=== PATIENT | male | born 1995 | race African-American/Black ===

== ENCOUNTER 2018-01-08 21:56 | Emergency (ER) | payer OTHER ==
[2018-01-08 23:51] VITALS: BP 146/81; PULSE 52; RESP 16; TEMP 98.1; O2SAT 100
[2018-01-09] MEDS ORDERED: TETANUS/DIPHTHERIA TOXOID ADULT 0.5 ML VIAL IM ONE (01:15)
--- NOTE | 2018-01-09 01:17 | PD ---
HPI Chief Complaint: Laceration/Skin Injury Time Seen by Provider: 01:14 Travel History International Travel<30 days: No Contact w/Intl Traveler<30days: No Traveled to known affect area: No History of Present Illness HPI Right-hand dominant male presents for evaluation of fingertip tissue avulsion. Prior to arrival the patient was cutting [place] chard with a knife when he inadvertently cut his finger. Initially he had some bleeding which is currently resolved. He reports pain at the site of the wound, throbbing, worse with palpation. His last tetanus vaccination is unknown. No other complaints at this time. [facility] Past Medical History Medical History: Denies Significant Hx Asthma: Yes Past Surgical History Surgical History: No Previous Surgery Social History Alcohol Use: Yes (OCC) Tobacco Use: No Substance Use: No Allergies-Medications (Allergen,Severity, Reaction): Coded Allergies: epinephrine (Verified Allergy, Unknown, 01/08/18) naproxen (Verified Allergy, Unknown, 01/08/18) oxycodone (Verified Allergy, Unknown, 01/08/18) Reported Meds & Prescriptions Reported Meds & Active Scripts Active No Active Prescriptions or Reported Medications Review of Systems Musculoskeletal: Positive: Pain Skin: Positive Other (Positive for pain, tissue avulsion) Physical Exam Narrative GENERAL: Well-developed well-nourished male in no acute distress SKIN: Warm and dry. There is a 0.5 cm in length 1 mm in depth superficial tissue avulsion of the distal left thumb. There is no bone visibility. There is no bleeding at this time. CARDIOVASCULAR: Regular rate and rhythm. No murmur appreciated. RESPIRATORY: No accessory muscle use. Clear to auscultation. Breath sounds equal bilaterally. Extremities: Skin as noted above. The patient maintains full range of motion of the left thumb. Capillary refill less than 2 seconds. Data Data Last Documented VS Vital Signs Date Time Temp Pulse Resp B/P (MAP) Pulse Ox O2 Delivery O2 Flow Rate FiO2 01/08/18 23:51 98.1 52 16 146/81 (102) 100 Orders Orders Tetanus/Diphtheria Tox Adult (Tetanus/Di (01/09/18 01:15) Wound Care (01/09/18 01:14) Ed Discharge Order (01/09/18 01:14) MDM Medical Decision Making Medical Screen Exam Complete: Yes Emergency Medical Condition: Yes Medical Record Reviewed: Yes Differential Diagnosis Superficial tissue avulsion versus laceration versus open fracture Narrative Course The patient presents with a superficial fingertip tissue avulsion to the left thumb which is not amenable to repair. Local wound care will be provided including a pressure dressing. Tetanus status updated. The patient is stable for discharge. Diagnosis Primary Impression: Skin avulsion Additional Instructions: Wash daily with soap and water and apply antibiotic cream and clean bandages. Follow-up with primary care physician. Return for any emergent medical conditions. Med/Other Pt SpecificInfo: Wound Care Scripts No Active Prescriptions or Reported Meds Disposition: 01 DISCHARGE HOME Condition: Stable Thom Baumann Jan 09, 2018 01:17
[2018-01-09] MEDS ORDERED: ACETAMINOPHEN 325 MG TAB PO ONE (02:30)
== END 2018-01-09 02:38 | disposition home or self-care (01) ==
LOC: NEPD 21:56
DX: S61.012A Laceration without foreign body of left thumb without damage to nail, initial encounter (principal); J45.909 Unspecified asthma, uncomplicated; W26.0XXA Contact with knife, initial encounter; Y93.G1 Activity, food preparation and clean up; Y99.0 Civilian activity done for income or pay; Z23 Encounter for immunization
CPT/HCPCS: 90471; 90714